=== PATIENT | female | born 1980 | race Caucasian/White ===

== ENCOUNTER → 2020-09-06 | Outpatient (CLI) | payer MEDICARE, OTHER ==
[~2020-09-06] MED LIST: ALBU90OI INH; ARIP10 PO; BUPR150ER PO; BUSP15 PO; CEPH500 PO; CETI10 PO; CLON.5; CODGUAEL PO; DOXY100 PO; ERYT500 PO; ESCI10; Esgic Tablet1 EACH PO; FAMO20 PO; FLUSAL2505 IH; HYDACE5 PO; LAMO25; LORA1; METPRE4DP PO; MIRT15 PO; NAPR550 PO; OXYACE5T PO; PERCOCET; PRAM.5 PO; PRAMIPEXOLE DIHY1 MG PO; PRAZ2 PO; PRED20 PO; Paxil40 MG PO; Prilosec Otc20 MG PO; RXNAPNA550 PO; TOPI100 PO; TRAZ100 PO; TRIA80TC TOP; VENL75; Zofran Odt4 MG SL; [UNRECOGNIZED DRUG - REMARK]
[2020-09-08 13:11] LABS: HPV 16 Negative (Negative); HPV 18 Negative (Negative); HPV OTHER HR TYPES Negative (Negative)
== END ==
LOC: LAB SHORT 08:30 → LAB 08:30
PROVIDERS: Family Medicine
DX: Z01.419 Encounter for gynecological examination (general) (routine) without abnormal findings (principal)
CPT/HCPCS: 87624; G0145

== ENCOUNTER 2024-09-25 09:17 | Day surgery (SDC) | payer MEDICARE, OTHER ==
[~2024-09-25] VITALS: Ht 160 cm; Wt 90.5 kg
[2024-09-25] MEDS ORDERED: PROP10 PO (09:44)
[2024-09-25] MEDS ORDERED: Midazolam HCl 1MG / ML 2ML Vial ONE ×2 (10:34→10:49)
[2024-09-25] MEDS ORDERED: FentaNYL Citrate 50 MCG/ML 2 ML Injection ONE ×2 (10:34→12:24)
[2024-09-25] MEDS ORDERED: Dexamethasone Sod Phos 10 MG/ML 1ML VIAL ONE (10:51)
[2024-09-25] MEDS ORDERED: Ondansetron HCl 2 MG / ML 2ML Vial ONE ×2 (11:04→11:39)
--- NOTE | 2024-09-25 11:13 | NUR ---
09/25/24 1113 Bernardo Mata MYOSURE NORMAL SALINE FLUID DEFICIT OF [address] DE LEON NOTIFIED.
[2024-09-25] MEDS ORDERED: Ketorolac Tromethamine 30mg Vial ONE (11:39)
[2024-09-25 12:49] VITALS: BP 114/68
--- NOTE | 2024-09-25 13:05 | NUR ---
09/25/24 1305 CliftonIsaias PT REPORTS MANAGEABLE LEVEL OF PAIN AND IS AGREEABLE TO D/C HOME.
== END 2024-09-25 13:02 | disposition home or self-care (01) ==
LOC: ORSCSDS 09:17
PROVIDERS: Obstetrics & Gynecology
PROC: 0UB98ZZ Excision of Uterus, Via Natural or Artificial Opening Endoscopic (ICD-10-PCS; principal; 2024-09-25 10:45)
PROC: 0UDB8ZX Extraction of Endometrium, Via Natural or Artificial Opening Endoscopic, Diagnostic (ICD-10-PCS; principal; 2024-09-25 10:45)
DX: N94.89 Other specified conditions associated with female genital organs and menstrual cycle (principal); N84.0 Polyp of corpus uteri; D50.9 Iron deficiency anemia, unspecified; F31.9 Bipolar disorder, unspecified; F41.9 Anxiety disorder, unspecified; F44.9 Dissociative and conversion disorder, unspecified; F43.10 Post-traumatic stress disorder, unspecified; M79.7 Fibromyalgia; Z87.891 Personal history of nicotine dependence; E66.01 Morbid (severe) obesity due to excess calories; Z68.35 Body mass index [BMI] 35.0-35.9, adult
CPT/HCPCS: 88305; A9270; J1100; J1885; J2250; J2405; J2704; J3010